=== PATIENT | female | born 1995 | race Caucasian/White ===

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

== ENCOUNTER 2018-02-03 15:23 | Emergency (ER) | payer BC ==
[~2018-02-03] VITALS: Ht 167.6 cm; Wt 50.6 kg
[2018-02-03] MEDS ORDERED: MOTRIN800 MG PO (17:20)
[2018-02-03 17:45] VITALS: BP 129/82
== END 2018-02-03 17:45 | disposition home or self-care (01) ==
LOC: EME 15:23 → EXP 15:23
DX: M79.601 Pain in right arm (principal); M41.9 Scoliosis, unspecified; F17.200 Nicotine dependence, unspecified, uncomplicated; Z88.8 Allergy status to other drugs, medicaments and biological substances; Z83.2 Family history of diseases of the blood and blood-forming organs and certain disorders involving the immune mechanism; Z82.3 Family history of stroke
CPT/HCPCS: 72040; 99281; 99284